=== PATIENT | female | born 1960 | race Caucasian/White ===

== ENCOUNTER 2018-02-04 09:47 | Emergency (ER) | payer BC ==
[2018-02-04 10:06] VITALS: BP 135/63
--- NOTE | 2018-02-04 10:28 | UC ---
Complaint Female HPI - HPI Summary HPI Summary: abdominal pressure, urinary urgency, left side flank pain and woke up feeling feverish. - History Of Current Complaint Chief Complaint: UCGU Stated Complaint: URINARY Time Seen by Provider: 02/04/18 10:19 Hx Obtained From: Patient Hx Last Menstrual Period: 1993 ?: No Onset/Duration: Sudden Onset, Lasting Days Timing: Constant Severity Initially: Mild Severity Currently: Moderate Pain Intensity: 7 Character: Cramping Aggravating Factor(s): Urination Associated Signs And Symptoms: Positive: Fever, Back Pain - Allergies/Home Medications Allergies/Adverse Reactions: Allergies Allergy/AdvReac Type Severity Reaction Status Date / Time esomeprazole Allergy Swelling Verified 02/04/18 10:01 Of Face,Lips,& Throat blue dyes Allergy Unknown Uncoded 02/04/18 10:01 Reaction Details hay feve Allergy Eyes Uncoded 02/04/18 10:01 Itchy/Swollen/Red/Watery red food dye Allergy Swelling Uncoded 02/04/18 10:01 Of Face,Lips,& Throat Home Medications: Home Medications amLODIPine TAB* [Norvasc 5 mg TAB*] 2.5 mg PO DAILY 02/04/18 [History Confirmed 02/04/18] PMH/Surg Hx/FS Hx/Imm Hx Previously Healthy: Yes - Surgical History Surgical History: Yes Surgery Procedure, Year, and Place: t/a; x 3; emergency and uterine repair; partial hysterectomy; cholecystectomy; tubal ligation; gastric bypass ~2005 - Family History Known Family History: Positive: Cardiac Disease, Hypertension, Other - alcohol abuse disorder - Social History Alcohol Use: None Substance Use Type: None Smoking Status (MU): Never Smoked Tobacco Review of Systems Constitutional: Negative Skin: Negative Eyes: Negative ENT: Negative Respiratory: Negative Cardiovascular: Negative Gastrointestinal: Negative Genitourinary: Dysuria, Urgency Motor: Negative Neurovascular: Negative Musculoskeletal: Negative Neurological: Negative Psychological: Negative Is Patient Immunocompromised?: No All Other Systems Reviewed And Are Negative: Yes Physical Exam Triage Information Reviewed: Yes Appearance: Well-Nourished, Ill-Appearing Vital Signs: Initial Vital Signs Temp 98.1 F 02/04/18 09:58 Pulse 87 02/04/18 09:58 Resp 15 02/04/18 09:58 BP 135/63 02/04/18 09:58 Pulse Ox 100 02/04/18 09:58 Vital Signs Reviewed: Yes Eye Exam: Normal ENT Exam: Normal Dental Exam: Normal Neck exam: Normal Neck: Positive: Supple, Nontender, No Lymphadenopathy Respiratory Exam: Normal Respiratory: Positive: Chest non-tender, Lungs clear Cardiovascular Exam: Normal Cardiovascular: Positive: RRR, No Murmur, Pulses Normal Abdomen Description: Positive: Nontender, No Organomegaly, Soft, CVA Tenderness (R) - neg, CVA Tenderness (L) - pos Bowel Sounds: Positive: Present Musculoskeletal Exam: Normal Neurological Exam: Normal Psychological Exam: Normal Skin Exam: Normal Complaint Female Dx - Course Course Of Treatment: hx obtained, exam performed, meds reviewed, treated for UTI and urine culture sent - Differential Dx/Diagnosis Provider Diagnoses: UTI. left flank pain Discharge - Sign-Out/Discharge Documenting (check all that apply): Discharge/Admit/Transfer - Discharge Plan Condition: Stable Disposition: HOME Prescriptions: Ciprofloxacin HCl [Cipro] 500 mg PO BID #10 tablet Patient Education Materials: Dysuria (ED) Referrals: No Primary Care Phys,NOPCP [Primary Care Provider] - Additional Instructions: 1. Increase fluid intake 2. Take the medication as prescribed. 3. Recommend the High dose cranberry pill daily to prevent UTI - Billing Disposition and Condition Condition: STABLE Disposition: Home
== END 2018-02-04 10:26 | disposition home or self-care (01) ==
LOC: UCCORT 09:47
DX: N39.0 Urinary tract infection, site not specified (principal); Z88.8 Allergy status to other drugs, medicaments and biological substances
CPT/HCPCS: 81003; 87086; 99212; G0463